=== PATIENT | female | born 1995 | race Caucasian/White ===

== ENCOUNTER 2020-07-14 18:03 | Emergency (ER) | payer OTHER ==
--- NOTE | 2020-07-14 19:03 | ER Document Report ---
ED Medical Screen (RME) - General Stated Complaint: CRAMPING/BLEEDING HEADACHE Time Seen by Provider: 07/14/20 18:51 - HPI Notes: 07/14/20 18:59 24-year-old female presents to the emergency room today for evaluation of stomach cramping with a large clot that she passed when she removed her tampon today approximately 2 hours ago. Patient reports LMP 07/05/2020. Reports some nausea and denies any vomiting, fever or chills. Patient states her had a vasectomy, she does not believe to be . Denies any pelvic pain. Patient was concerned about the large clot that she vaginally passed. Denies any trauma. Denies any clotting disorders or bleeding disorders. Has not tried any ryxt-jjn-jfrhadw medications. G2, P2. Has not been evaluated by PCP or MEDICINE AIDE, recently moved to the area. I have greeted and performed a rapid initial assessment of this patient. A comprehensive ED assessment and evaluation of the patient, analysis of test results and completion of the medical decision making process will be conducted by additional ED providers. PHYSICAL EXAMINATION: GENERAL: Well-appearing, well-nourished and in no acute distress. CV: s1, s2 regular LUNGS: No respiratory distress abd: no suprapubic tenderness, no cva tenderness appreciated. The patient was evaluated during a global COVID-19 pandemic and that diagnosis was suspected/considered upon their initial presentation. Their evaluation, treatment and testing was consistent with current guidelines for patients who present with complaints or symptoms and may be related to COVID-19. Physical Exam - Vital signs Vitals: Temp Pulse Resp BP Pulse Ox 98.4 F 83 18 114/71 100 07/14/20 18:07/14/20 18:26 07/14/20 18:07/14/20 18:07/14/20 18:26 Course - Vital Signs Vital signs: Temp Pulse Resp BP Pulse Ox 98.4 F 83 18 114/71 100 07/14/20 18:26 07/14/20 18:26 07/14/20 18:26 07/14/20 18:26 07/14/20 18:26
[2020-07-14 19:27] LABS: ABSOLUTE BASOPHILS # (AUTO) 0.1 10^3/uL (0.0-0.2); ABSOLUTE EOSINOPHILS # (AUTO) 0.1 10^3/uL (0.0-0.6); ABSOLUTE LYMPHOCYTES (AUTO) 2.4 10^3/uL (0.5-4.7); ABSOLUTE MONOCYTES (AUTO) 0.5 10^3/uL (0.1-1.4); ABSOLUTE NEUT (AUTO) 4.1 10^3/uL (1.7-8.2); BASOPHILS % (AUTO) 0.8 % (0-2); EOSINOPHILS % (AUTO) 0.8 % (0-6); HEMATOCRIT 40.1 % (36.0-47.0); HEMOGLOBIN 13.3 g/dL (12.0-15.5); LYMPHOCYTES % (AUTO) 33.6 % (13-45); MEAN CORPUSCULAR HEMOGLOBIN 27.7 pg (27.0-33.4); MEAN CORPUSCULAR HGB CONC 33.3 g/dL (32.0-36.0); MEAN CORPUSCULAR VOLUME 83 fl (80-97); MONOCYTES % (AUTO) 6.9 % (3-13); PLATELET COUNT 238 10^3/uL (150-450); RED BLOOD COUNT 4.82 10^6/uL (3.72-5.28); RED CELL DISTRIBUTION WIDTH 14.2 % (11.5-14.0); SEGMENTED NEUTROPHILS % (AUTO) 57.9 % (42-78); TOTAL CELLS COUNTED % (AUTO) 100 %; WHITE BLOOD COUNT 7.1 10^3/uL (4.0-10.5)
[2020-07-14 19:35] LABS: APPEARANCE,URINE CLEAR; BILIRUBIN,URINE NEGATIVE (NEGATIVE); COLOR,URINE STRAW; GLUCOSE, URINE NEGATIVE (NEGATIVE); KETONES,URINE NEGATIVE (NEGATIVE); LEUKOCYTE ESTERASE,URINE NEGATIVE (NEGATIVE); NITRITE,URINE NEGATIVE (NEGATIVE); PROTEIN,URINE NEGATIVE (NEGATIVE); URINE SPECIFIC GRAVITY 1.005; UROBILINOGEN,URINE NEGATIVE mg/dL (<2.0)
[2020-07-14 20:15] LABS: ALBUMIN 4.5 g/dL (3.5-5.0); ALKALINE PHOSPHATASE 96 U/L (38-126); ANION GAP 7 (5-19); ASPARTATE AMINO TRANSFERASE 26 U/L (14-36); BILIRUBIN,DIRECT 0.2 mg/dL (0.0-0.4); BILIRUBIN,TOTAL 0.4 mg/dL (0.2-1.3); BLOOD UREA NITROGEN 10 mg/dL (7-20); CALCIUM 9.5 mg/dL (8.4-10.2); CARBON DIOXIDE 27 mmol/L (22-30); CHLORIDE 104 mmol/L (98-107); GLUCOSE 89 mg/dL (75-110); POTASSIUM 3.8 mmol/L (3.6-5.0); TOTAL PROTEIN 7.5 g/dL (6.3-8.2)
--- NOTE | 2020-07-14 21:08 | RADIOLOGY REPORT (SQ) ---
EXAM DESCRIPTION: U/S NON-OB PELVIS TV W/O DOP 07/14/2020 6:57 PM [facility] MANAGER CLINICAL HISTORY: 24 years Female, large clot with vag bleeding today, lmp 07/05; ; COMPARISON: None. FINDINGS: Cervix is closed, measuring 2.3 cm in length. Uterus measures 7.6 x 5.5 x 3.9 cm in size. Endometrial stripe thickness is 11 mm. Left ovary measures 3.7 x 1.3 x 1.8 cm in size. It demonstrates normal low resistance arterial waveforms/venous flow as well as a few normal-appearing follicles. The right ovary was not visualized. No free fluid. IMPRESSION: No definite acute sonographic abnormality.
[2020-07-14] MEDS ORDERED: MEDROXYPROGESTERONE ACET 10 MG TABLET PO ONE (21:33)
--- NOTE | 2020-07-14 22:31 | ER Document Report ---
ED GI/ - General Chief Complaint: Vaginal Bleeding Stated Complaint: CRAMPING/BLEEDING HEADACHE Time Seen by Provider: 07/14/20 18:51 Primary Care Provider: SHADI ARANDA MD [COMMUNITY BASED STAFF] - Follow up as needed DEEPAK GUNN MD [ACTIVE STAFF] - Follow up as needed Mode of Arrival: Ambulatory Information source: Patient Notes: 24-year-old female presents to the emergency room today for evaluation of stomach cramping with a large clot that she passed when she removed her tampon today approximately 2 hours ago. Patient reports LMP 07/05/2020. Reports some nausea and denies any vomiting, fever or chills. Patient states her had a vasectomy, she does not believe to be . Denies any pelvic pain. Patient was concerned about the large clot that she vaginally passed. Denies any trauma. Denies any clotting disorders or bleeding disorders. Has not tried any smjv-lag-hazbdjn medications. G2, P2. Has not been evaluated by PCP or [facility], recently moved to the area. - Related Data Allergies/Adverse Reactions: No Known Allergies Allergy (Unverified 07/14/20 19:02) Past Medical History - General Information source: Patient - Social History Smoking Status: Never Smoker Frequency of alcohol use: Rare Family History: Reviewed & Not Pertinent - Medical History Medical History: Negative Surgical Hx: Negative - Immunizations Immunizations up to date: Yes Review of Systems - Review of Systems Female Genitourinary: Irregular period, Vaginal bleeding -: Yes All other systems reviewed and negative Physical Exam - Vital signs Vitals: Temp Pulse Resp BP Pulse Ox 98.4 F 83 18 114/71 100 07/14/20 18:26 07/14/20 18:26 07/14/20 18:26 07/14/20 18:26 07/14/20 18:26 - Notes Notes: PHYSICAL EXAMINATION: GENERAL: Well-appearing, well-nourished and in no acute distress. HEAD: Atraumatic, normocephalic. EYES: Pupils equal round and reactive to light, extraocular movements intact, conjunctiva are normal. ENT: Nares patent, oropharynx clear without exudates. Moist mucous membranes. NECK: Normal range of motion, supple without lymphadenopathy LUNGS: Breath sounds clear to auscultation bilaterally and equal. No wheezes rales or rhonchi. HEART: Regular rate and rhythm without murmurs ABDOMEN: Soft, nontender, nondistended abdomen. No guarding, no rebound. No masses appreciated. Female : Normal external genitalia, small amount of dark red blood from the cervix, no active hemorrhage. Musculoskeletal: Normal range of motion, no pitting or edema. No cyanosis. NEUROLOGICAL: Cranial nerves grossly intact. Normal speech, normal gait. Normal sensory, motor exams PSYCH: Normal mood, normal affect. SKIN: Warm, Dry, normal turgor, no rashes or lesions noted. Course - Re-evaluation Re-evalutation: Patient appears well, nontoxic, work-up today was reassuring. On exam patient had no vaginal hemorrhaging. She will follow-up with [facility]. We will start her on Provera based on the fact that she has been passing multiple blood clots per patient report. ED return precautions discussed. The patient's emergency department workup and current diagnosis were explained to the patient and or family. Follow-up instructions were provided. Medications if prescribed were discussed. Instructions for when to return to the emergency department including specific worrisome symptoms were discussed with the patient and/or family. - Vital Signs Vital signs: Temp Pulse Resp BP Pulse Ox 98.2 F 79 17 114/72 100 07/14/20 23:14 07/14/20 23:14 07/14/20 23:14 07/14/20 23:14 07/14/20 23:14 - Laboratory Results Result Diagrams: 07/14/20 19:11 07/14/20 19:11 Laboratory Results Interpreted: 07/14/20 07/14/20 19:11 19:11 RDW 14.2 H Urine Blood LARGE H Critical Laboratory Results Reviewed: No Critical Results - Radiology Results Critical Radiology Results Reviewed: No Critical Results Discharge - Discharge Clinical Impression: Vaginal bleeding Condition: Stable Disposition: HOME, SELF-CARE Additional Instructions: Take medication as prescribed. Please return with any new or worsening symptoms to include feeling like you are going to pass out, syncopal episodes or bleeding through more than 2 pads per hour for 4 hours consecutively. Please follow-up w yi [facility], call them tomorrow to schedule an appointment. Let them know you are in the emergency department and we had to start you on Provera. Prescriptions: Medroxyprogesterone Acet [Provera 10 Mg Tablet] 10 mg PO DAILY #10 tablet Referrals: GUNN,DEEPAK, MD [ACTIVE STAFF] - Follow up as needed SHADI ARANDA MD [COMMUNITY BASED STAFF] - Follow up as needed
--- NOTE | 2020-07-14 22:41 | RADIOLOGY REPORT (SQ) ---
EXAM DESCRIPTION: CT ABD/PELVIS WITH IV ONLY CLINICAL HISTORY: 24 years Female, RLQ pain/R flank pain COMPARISON: None. TECHNIQUE: Axial images of the abdomen and pelvis were performed utilizing intravenous contrast, with sagittal and coronal reformatted images. This exam was performed according to our departmental dose-optimization program which includes use of Automated Exposure Control, adjustment of the mA and/or kV according to patient size and/or use of iterative reconstruction technique. FINDINGS: The appendix appears normal. The uterus is retroverted. There is a 9 mm enhancing lesion in the lateral aspect of the liver dome, seen best on axial image #10. This lesion becomes isodense with the remainder of the liver on the delayed images. There is no significant radiographic abnormality of the spleen, pancreas, adrenal glands or kidneys. No free air or free fluid. IMPRESSION: 9 mm enhancing hepatic lesion as described. This may represent a benign hemangioma, however, other hypervascular lesions cannot be excluded. Retroverted uterus.
[2020-07-14 23:17] VITALS: BP 114/72
== END 2020-07-14 23:22 | disposition home or self-care (01) ==
LOC: EDSEX → ER 18:03
DX: N93.8 Other specified abnormal uterine and vaginal bleeding (principal); R51.9 Headache, unspecified; R11.0 Nausea; R10.9 Unspecified abdominal pain
CPT/HCPCS: 99285; 36415; 84702; 85025; 80053; 81001; 76830; 74177; J3490